=== PATIENT | female | born 1990 | race American Indian/Alaskan Native ===

== ENCOUNTER 2017-09-03 13:17 | Day surgery (SDC) | payer BC, MEDICAID ==
[2017-09-03] MEDS ORDERED: Propofol 10 mg/ml Inj (20 ML) ONE (16:27)
[2017-09-03] MEDS ORDERED: Sodium Chloride 0.9% 1,000 ML IV SCH (16:45)
[2017-09-03 17:23] VITALS: BP 107/64; PULSE 52; RESP 20; TEMP 97.7; O2SAT 94
== END 2017-09-03 18:00 | disposition home or self-care (01) ==
LOC: ENDO 13:17
PROVIDERS: ATTEND Internal Medicine Gastroenterology
DX: K29.50 Unspecified chronic gastritis without bleeding (principal); K44.9 Diaphragmatic hernia without obstruction or gangrene; K31.89 Other diseases of stomach and duodenum
CPT/HCPCS: 43239; 84703; 88305; 88342; J2704; J7040 ×2

== ENCOUNTER 2017-10-09 08:38 | Inpatient (IN) | payer BC, MEDICAID ==
--- NOTE | 2017-10-09 09:14 | ED PDOC ---
Arrival/HPI - History of Present Illness Time/Duration: 1-3 hours Symptom Onset: Sudden Symptom Course: Unchanged Quality: Stabbing Severity Level: 10 Activities at Onset: Rest <Lynsey Rasmussen - Last Filed: 10/09/17 17:10> <William Tucker - Last Filed: 10/09/17 17:15> - General Chief Complaint: Abdominal Pain Time Seen by Provider: 10/09/17 08:42 - History of Present Illness Narrative History of Present Illness (Text): This patient is a 26 year old Black female with PMHx significant for hepatic tumor, Hepatic lobectomy, hepatic ablation, and pancreatic divisum who presents to the ED with complaints of sharp Left sided abdominal pain that woke up her up out of her sleep this morning which she rates a 10/10. Patient cannot identify any factors that may have caused the pain. Patient states the pain is constant and at times sharply radiates to her right abdomen. The pain is aggravated with inspiration and is relieved by standing up. Patient has not had a bowel movement for 5 days. According to the patient, her bowel movements are usually not normal. She denies any blood or dark stool in her last bowel movement. She denies any fevers, chills, chest pain, or urinary symptoms. She does complain of shortness of breath due to the abdominal pain. Patient's last meal was around 9pm last night which she tolerated. She denies vomiting but states that she has been "gagging". Patient had hepatic ablation done in August and was admitted to [facility] [place] 2 weeks ago for slight bleeding secondary to the ablation. ROS POSITIVES: Abd Pain, Nausea, constipation, SOB NEGATIVES: Melena, blood in stool, urinary symptoms, generalized weakness, chest pain, fevers, chills, dizziness, generalized weakness PMHx: Chronic Gastritis, Hepatic tumor, Pancreatic divisum, hiatal hernia PSHx: Hepatic lobectomy, Hepatic ablation Allergies: NKDA Social Hx: Denies Tobacco, alcohol, or illicit drug use Hos: [facility] [place] [facility] 2 weeks ago for abdominal pain FamHx: Denies Meds: Denies 10/09/17 09:42 10/09/17 09:44 (Lynsey Rasmussen) Past Medical History - Provider Review Nursing Documentation Reviewed: Yes - Infectious Disease Hx of Infectious Diseases: None - Tetanus Immunization Tetanus Immunization: Unknown - Past Medical History Past Medical History: No Previous - Cardiac Hx Cardiac Disorders: No - Pulmonary Hx Bronchitis: Yes - Neurological Hx Neurological Disorder: No - HEENT Hx HEENT Disorder: No - Renal Hx Renal Disorder: No - Endocrine/Metabolic Hx Endocrine Disorders: No - Hematological/Oncological Hx Blood Disorders: No - Integumentary Hx Dermatological Disorder: No - Musculoskeletal/Rheumatological Hx Musculoskeletal Disorders: No - Gastrointestinal Hx Gastrointestinal Disorders: Yes Other/Comment: Pancreatic problems-Per patient pancrease is splitting. Liver tumors. - Genitourinary/Gynecological Hx Genitourinary Disorders: No - Psychiatric Hx Psychophysiologic Disorder: No Hx Substance Use: No - Past Surgical History Past Surgical History: No Previous - Surgical History Other/Comment: Liver Tumor removal. - Anesthesia Hx Anesthesia Reactions: No Hx Malignant Hyperthermia: No - Suicidal Assessment Feels Threatened In Home Enviroment: No <Lynsey Rasmussen - Last Filed: 10/09/17 17:10> Family/Social History - Physician Review Nursing Documentation Reviewed: Yes Family/Social History: No Known Family HX Smoking Status: Never Smoked Hx Alcohol Use: No Hx Substance Use: No Hx Substance Use Treatment: No <Lynsey Rasmussen - Last Filed: 10/09/17 17:10> Allergies/Home Meds <Lynsey Rasmussen - Last Filed: 10/09/17 17:10> <William Tucker - Last Filed: 10/09/17 17:15> Allergies/Adverse Reactions: Allergies No Known Allergies Allergy (Verified 10/09/17 09:06) Home Medications: Home Meds Medication Instructions Recorded Confirmed No Home Meds 0 mg PO DAILY 08/31/17 10/09/17 Review of Systems - Physician Review All systems were reviewed & negative as marked: Yes (ROS as per HPI) - Review of Systems Constitutional: Normal Respiratory: SOB. absent: Normal Cardiovascular: Normal. absent: Chest Pain <Lynsey Rasmussen - Last Filed: 10/09/17 17:10> Physical Exam Vital Signs Reviewed: Yes Temperature: Afebrile Blood Pressure: Normal Pulse: Regular Respiratory Rate: Normal Appearance: Positive for: Ill-Appearing, Uncomfortable Pain Distress: Severe Mental Status: Positive for: Alert and Oriented X 3 - Systems Exam Head: Present: Atraumatic, Normocephalic Conjunctiva: Present: Normal Ears: Present: Normal Mouth: Present: Moist Mucous Membranes Nose (External): Present: Atraumatic Neck: Present: Normal Range of Motion Respiratory/Chest: Present: Clear to Auscultation. No: Wheezes, Rales, Rhonchi Cardiovascular: Present: Regular Rate and Rhythm, Normal S1, S2. No: Murmurs Abdomen: Present: Tenderness, Guarding. No: Distention Upper Extremity: Present: Normal Inspection Lower Extremity: Present: Normal Inspection Neurological: Present: GCS=15, Speech Normal Skin: Present: Warm, Dry, Normal Color Psychiatric: Present: Alert, Oriented x 3 <Lynsey Rasmussen - Last Filed: 10/09/17 17:10> Vital Signs Temp Pulse Resp BP Pulse Ox 10/09/17 15:39 98.3 F 56 L 17 100/62 100 10/09/17 13:50 98.3 F 59 L 17 95/57 L 100 10/09/17 12:16 98.3 F 54 L 17 103/65 100 10/09/17 11:03 98.3 F 87 17 114/67 98 10/09/17 09:03 98.3 F 76 17 112/76 98 Medical Decision Making - Lab Interpretations I have reviewed the lab results: Yes - RAD Interpretation Tag Press Operator: ED Physician, Radiologist <Lynsey Rasmussen - Last Filed: 10/09/17 17:10> <William Tucker - Last Filed: 10/09/17 17:15> ED Course and Treatment: 26 year old female with history of chronic gastritis presents with abdominal pain --CMP/CBC --Lipase --1L NS Bolus --UA w/ HCG --Morphine 4 IVP --Protonix 40 IVP --CT Abd/Pelvis --Reassess and Disposition Reassessment --CMP - Unremarkable --CBC - Unremarkable, no leukocytosis --Lipase WNL @ 74 --UA: 30 protein, Trace-intact blood, urobilinogen --Morphine 5 given. --CT Abd/Pelvis impression read by Dr. Salome Sparrow: Numerous hepatic hypodense lesions, indeterminate. Largest lesion resides within the left hepatic lobe measuring approximately 3.1 x 2.1 cm, hypodense and heterogeneous. Dedicated cross-sectional imaging may be considered as an outpatient for further characterization if indicated. Moderate constipation. Distended gallbladder without calcified gallstones evident. Correlate clinically. 2.5 cm probable left ovarian cyst. Pelvic ultrasound may be considered for further evaluation if indicated. Additional incidental findings as above. --Ordered TV US for evaluation ovarian cyst --Ordered Abd US for evaluation of Gallbladder --Toradol 30 IVP given for return of pain. --Reassess and Disposition Reassessment 2 --Gave Colace for Constipation --TV US: Bilateral ovarian cysts measuring up to 2.1 cm and septated on the left. Recommend 6 week ultrasound follow-up to assess for resolution. --Abd US Heterogeneous hepatic parenchyma with numerous hepatic masses which appear hyperechoic, indeterminate on current study. Prior imaging indicates patient with history of focal nodular hyperplasia. Recommend continued follow-up as indicated. --Patient discussed with Braulio (GI) by physician --Advised patient to follow up with PMD for repeat US to assess resolution of b/ l ovarian. (Lynsey Rasmussen) 10/09/17 10:03 Cate Romano is a 26 year old female who presents to the emergency department with a complaint of abdominal pain since this morning. In agreement with resident note, which includes further HPI details. Patient was seen and evaluated with resident, came up with plan and treatment together. (William Tucker) - Lab Interpretations Lab Results: 10/09/17 09:35 10/09/17 09:35 Lab Results 10/09/17 10:05: Urine Color Yellow, Urine Appearance Sl cloudy, Urine pH 7.5, Ur Specific [place] 1.020, Urine Protein 30 H, Urine Glucose (UA) Negative, Urine Ketones Negative, Urine Blood Trace-intact H, Urine Nitrate Negative, Urine Bilirubin Negative, Urine Urobilinogen 1.0 H, Ur Leukocyte Esterase Negative, Urine RBC 1 - 3, Urine WBC 0 - 2, Ur Epithelial Cells 1 - 3, Urine Bacteria Mod, Urine HCG, Qual Negative 10/09/17 09:35: Sodium 144, Potassium 4.3, Chloride 105, Carbon Dioxide 29, Anion Gap 15, BUN 12, Creatinine 0.6 L, Est GFR ( Amer) > 60, Est GFR ( Non-Af Amer) > 60, Random Glucose 97, Calcium 10.1, Total Bilirubin 0.6, AST 24 , ALT 33, Alkaline Phosphatase 64, Total Protein 8.3, Albumin 4.9 H, Globulin 3.3, Albumin/Globulin Ratio 1.5, Lipase 74 10/09/17 09:35: WBC 6.3 D, RBC 4.57, Hgb 12.7, Hct 38.6, MCV 84.5, MCH 27.8, MCHC 32.9, RDW 13.7, Plt Count 287, MPV 9.3, Gran % 66.4, Lymph % (Auto) 27.9, Cotton % (Auto) 4.9, Eos % (Auto) 0.6 L, Baso % (Auto) 0.2, Gran # 4.21, Lymph # 1.8, Cotton # 0.3, Eos # 0.0, Baso # 0.01 - RAD Interpretation Radiology Orders: 10/09/17 09:18 ABD & PELVIS IV CONTRAST ONLY [CT] Stat 10/09/17 14:12 ABDOMEN COMPLETE [US] Stat TRANSVAGINAL [US] Stat - Medication Orders Current Medication Orders: Discontinued Medications Docusate Sodium (Colace) 100 mg PO STAT STA Stop: 10/09/17 16:54 Sodium Chloride (Sodium Chloride 0.9%) 1,000 mls @ 999 mls/hr IV .[id number] STA Stop: 10/09/17 10:18 Last Admin: 10/09/17 09:49 Dose: 999 mls/hr eMAR Start Stop Document 10/09/17 09:49 OCS (Rec: 10/09/17 09:49 OCS [id number]) Intravenous Solution Start Date 10/09/17 Start Time 09:49 End Date 10/09/17 End time 10:49 Total Infusion Time 60 Ketorolac Tromethamine (Toradol) 30 mg IVP STAT STA Stop: 10/09/17 14:17 Last Admin: 10/09/17 14:38 Dose: 30 mg MAR Pain Assessment Document 10/09/17 14:38 OCS (Rec: 10/09/17 14:44 OCS [id number]) Pain Reassessment Is this a pain reassessment? Yes Sleep Is patient sleeping during reassessment? No Presence of Pain Presence of Pain Yes Pain Scale Used Pain Scale Used Numeric Location Left, Right or Bilateral Left Pain Location Body Site Abdomen Description Description Constant Intensity of Pain at present 10 Pain Behavior Guarding Irritability Rubbing Site Aggravating Factors ADL's IVP Administration Document 10/09/17 14:38 OCS (Rec: 10/09/17 14:44 OCS [id number]) Charges for Administration # of IVP Administrations 1 Morphine Sulfate (Morphine) 4 mg IVP STAT STA Stop: 10/09/17 09:19 Last Admin: 10/09/17 09:56 Dose: Morphine Sulfate (Morphine) 4 mg IVP STAT STA Stop: 10/09/17 09:45 Last Admin: 10/09/17 09:56 Dose: 4 mg IVP Administration Document 10/09/17 09:56 OCS (Rec: 10/09/17 09:56 OCS [id number]) Charges for Administration # of IVP Administrations 1 Morphine Sulfate (Morphine) 5 mg IVP STAT STA Stop: 10/09/17 10:52 Last Admin: 10/09/17 10:58 Dose: 5 mg IVP Administration Document 10/09/17 10:58 OCS (Rec: 10/09/17 10:58 OCS [id number]) Charges for Administration # of IVP Administrations 1 Pantoprazole Sodium (Protonix Inj) 40 mg IVP STAT STA Stop: 10/09/17 09:19 Last Admin: 10/09/17 09:50 Dose: 40 mg IVP Administration Document 10/09/17 09:50 OCS (Rec: 10/09/17 09:50 OCS [id number]) Charges for Administration # of IVP Administrations 1 <Lynsey Rasmussen - Last Filed: 10/09/17 17:10> - Scribe Statement The provider has reviewed the documentation as recorded by the Scribe <William Tucker - Last Filed: 10/09/17 17:15> - Scribe Statement Tessa Arizmendi Provider Scribe Attestation: All medical record entries made by the Scribe were at my direction and personally dictated by me. I have reviewed the chart and agree that the record accurately reflects my personal performance of the history, physical exam, medical decision making, and the department course for this patient. I have also personally directed, reviewed, and agree with the discharge instructions and disposition. (William Tucker) Disposition/Present on Arrival - Present on Arrival Any Indicators Present on Arrival: No History of DVT/PE: No History of Uncontrolled Diabetes: No Urinary Catheter: No History of Decub. Ulcer: No History Surgical Site Infection Following: None - Disposition Have Diagnosis and Disposition been Completed?: Yes Disposition Time: 16:57 Patient Plan: Admission <Lynsey Rasmussen - Last Filed: 10/09/17 17:10> <William Tucker - Last Filed: 10/09/17 17:15> - Disposition Diagnosis: Abdominal pain Disposition: HOSPITALIZED Patient Problems: Current Active Problems Problem Status Onset Abdominal pain Acute Condition: STABLE
[2017-10-09] MEDS ORDERED: Morphine 4 mg/ml ISec IVP STA (09:18)
[2017-10-09] MEDS ORDERED: Sodium Chloride 0.9% 1,000 ML IV STA (09:18)
[2017-10-09] MEDS ORDERED: Morphine 5 MG/ML SYRINGE IVP STA ×2 (09:44→10:51)
[2017-10-09 09:49] LABS: BASO # 0.01 K/mm3 (0.0-2.0); BASO % 0.2 % (0.0-3.0); EOS % 0.6 % (1.5-5.0); GRAN # 4.21 (1.4-6.5); GRAN % 66.4 % (50.0-68.0); HEMATOCRIT 38.6 % (36.0-48.0); LYMPH # 1.8 (1.2-3.4); LYMPH % 27.9 % (22.0-35.0); MEAN CELL VOLUME 84.5 fl (80.0-105.0); MEAN CORPUSCULAR HEMOGLOBIN 27.8 pg (25.0-35.0); MEAN CORPUSCULAR HGB CONC 32.9 g/dl (31.0-37.0); MEAN PLATELET VOLUME 9.3 fl (7.0-11.0); MONO # 0.3 (0.1-0.6); MONO % 4.9 % (1.0-6.0); RED CELL DISTRIBUTION WIDTH 13.7 % (11.5-14.5); WHITE BLOOD COUNT 6.3 10^3/ul (4.5-11.0)
[2017-10-09 10:01] LABS: ALKALINE PHOSPHATASE 64 U/L (38-126); ALT/SGPT 33 U/L (7-56); AST/SGOT 24 U/L (14-36); BILIRUBIN,TOTAL 0.6 mg/dL (0.2-1.3); BLOOD UREA NITROGEN 12 mg/dL (7-21); CALCIUM 10.1 mg/dL (8.4-10.5); CARBON DIOXIDE 29 mmol/L (21-33); CHLORIDE 105 mmol/L (98-107); GFR AFRICAN-AMERICAN > 60; GLUCOSE,RANDOM 97 mg/dL (70-110); LIPASE 74 U/L (23-300); POTASSIUM 4.3 mmol/L (3.6-5.0); SODIUM 144 mmol/L (132-148); TOTAL PROTEIN 8.3 g/dL (5.8-8.3)
[2017-10-09 10:09] LABS: ALB/GLOB RATIO 1.5 (1.1-1.8)
[2017-10-09 10:21] LABS: PH,URINE 7.5 (4.7-8.0); URINE APPEARANCE SL CLOUDY (CLEAR); URINE BILIRUBIN NEGATIVE (NEGATIVE); URINE BLOOD TRACE-INTACT (NEGATIVE); URINE COLOR YELLOW (YELLOW); URINE GLUCOSE (UA) NEGATIVE (NEGATIVE); URINE KETONE NEGATIVE (NEGATIVE); URINE LEUKOCYTE ESTERASE NEGATIVE Leu/uL (NEGATIVE); URINE PROTEIN 30 mg/dL (<30 mg/dL)
[2017-10-09 10:36] LABS: URINE BACTERIA MOD (NEG); URINE WBC 0 - 2 /hpf (0-6)
[2017-10-09] MEDS ORDERED: Iohexol 350 MG/100 ML VIAL ONE (10:40)
--- NOTE | 2017-10-09 14:06 | CT ---
PROCEDURE: CT Abdomen and Pelvis with contrast HISTORY: Abdominal Pain COMPARISON: MR abdomen performed 01/17/16 TECHNIQUE: Contrast dose: 100 cc Omnipaque 350 Radiation dose: Total exam DLP = 240.01 mGy-cm. This CT exam was performed using one or more of the following dose reduction techniques: Automated exposure control, adjustment of the mA and/or kV according to patient size, and/or use of iterative reconstruction technique. FINDINGS: LOWER THORAX: No visible consolidation, pleural effusion, or pneumothorax. LIVER: Numerous hepatic hypodense lesions, indeterminate. Largest lesion resides within the left hepatic lobe measuring approximately 3.1 x 2.1 cm, hypodense and heterogeneous (series 2, image 40). GALLBLADDER AND BILE DUCTS: Gallbladder distension. No calcified gallstones evident. PANCREAS: Unremarkable. SPLEEN: Unremarkable. ADRENALS: Unremarkable. KIDNEYS AND URETERS: The kidneys enhance symmetrically. No hydronephrosis or obstructing calculus identified. VASCULATURE: No aortic aneurysm. BOWEL: Stomach is nondistended. Lack of oral contrast limits evaluation for bowel pathology. Bowel loops appear within normal limits of caliber without evidence of obstruction. Moderate constipation. APPENDIX: The appendix appears within normal limits of caliber. No secondary signs of acute appendicitis. PERITONEUM: No significant pelvic free fluid. No definite free air. LYMPH NODES: No bulky adenopathy identified. BLADDER: Unremarkable. REPRODUCTIVE: Uterus is present. Probable left ovarian cyst measures approximately 2.5 cm. BONES: No acute osseous abnormality is detected. OTHER FINDINGS: None. IMPRESSION: Numerous hepatic hypodense lesions, indeterminate. Largest lesion resides within the left hepatic lobe measuring approximately 3.1 x 2.1 cm, hypodense and heterogeneous. Dedicated cross-sectional imaging may be considered as an outpatient for further characterization if indicated. Moderate constipation. Distended gallbladder without calcified gallstones evident. Correlate clinically. 2.5 cm probable left ovarian cyst. Pelvic ultrasound may be considered for further evaluation if indicated. Additional incidental findings as above.
--- NOTE | 2017-10-09 15:55 | US ---
HISTORY: gallbladder distension/Abd pain COMPARISON: CT abdomen pelvis with IV contrast performed 10/09/17 TECHNIQUE: Sonographic evaluation of the abdomen. FINDINGS: LIVER: Measures 16.3 cm in sagittal dimension. Echogenic liver may be seen in setting of hepatic parenchymal disease or fatty infiltration. Multiple hyperechoic hepatic masses, indeterminate. The main portal vein appears patent with normal directional flow. No intrahepatic bile duct dilatation. GALLBLADDER: No gallstones. No gallbladder wall thickening. Negative sonographic Mir's sign as assessed by the flat knitter helper. COMMON BILE DUCT: Measures 3 mm. PANCREAS: Not well visualized. RIGHT KIDNEY: Measures 11.2 x 4.6 x 5.3 cm. No obstructing calculus or hydronephrosis identified. LEFT KIDNEY: Measures 11.8 x 4.4 x 4.4 cm. No obstructing calculus or hydronephrosis identified. SPLEEN: Measures approximately 11.7 cm. AORTA: Limited views appear unremarkable. IVC: Limited views appear unremarkable. OTHER FINDINGS: None. IMPRESSION: Heterogeneous hepatic parenchyma with numerous hepatic masses which appear hyperechoic, indeterminate on current study. Prior imaging indicates patient with history of focal nodular hyperplasia. Recommend continued follow-up as indicated.
--- NOTE | 2017-10-09 16:29 | US ---
HISTORY: Ovarian Cyst COMPARISON: No prior ultrasound available for direct comparison. TECHNIQUE: Transvaginal pelvic ultrasound FINDINGS: UTERUS: Measures 10.3 x 4.6 x 5.6 cm. Anteverted. ENDOMETRIUM: Measures 1 cm in diameter. CERVIX: No cervical abnormality identified. RIGHT OVARY: Measures 2.9 x 2.3 x 2.6 cm. Blood flow is demonstrated. 1.1 x 1.0 x 1.2 cm cyst. LEFT OVARY: Measures 3.5 x 2.7 x 3.6 cm. Blood flow is demonstrated. 2.0 x 1.5 x 2.1 cm septated cyst. FREE FLUID: No significant free fluid noted. OTHER FINDINGS: None. IMPRESSION: Bilateral ovarian cysts measuring up to 2.1 cm and septated on the left. Recommend 6 week ultrasound follow-up to assess for resolution.
[2017-10-09] MEDS ORDERED: POLYETHYLENE GLYCOL 3350 17 GM/Dose PACKET PO STA (18:01)
[2017-10-09] MEDS ORDERED: Sodium Chloride 0.9% 1,000 ML IV SCH (18:15)
[2017-10-09 18:53] VITALS: BMI 28.8
[2017-10-09] MEDS ORDERED: Pneumococcal 23-Valent Vaccine IM ONE (18:53)
[2017-10-09] MEDS ORDERED: Influenza Vaccine 60 mcg/0.5 mL SYR (4YR UP) IM ONE (18:53)
--- NOTE | 2017-10-09 23:57 | CP.PCM.CON ---
History of Present Illness - History of Present Illness History of Present Illness: this 26-year-old patient well known to our service with a history of hepatoma status post hepatic lobe resection done at the [facility] by Dr. Resendez. She Has recurrence of these hepatomas and patient recently had an attempted radiofrequency ablation/embolization with partial success. This patient noticed a worsening of the abdominal pain on the left side of the abdomen present to the emergency room for further evaluation. No fever no vomiting blood no bleeding per rectum. Patient does have history of chronic constipation with a redundant colon. Last endoscopy evaluation did not reveal any ulcerations. Patient had recently seen Dr. Resendez and the she is due to have further workup based on the clinical course. She points out the pain mainly in the left upper quadrant area closer to the epigastric area. No complaints of any abdominal pain on the right side. The CT showed some distended gallbladder. other PAST MEDICAL HISTORY included chronic constipation, redundant colon gastritis, questionable pancreatic divisum sOCIAL HISTORY no smoking or alcohol/ Review of Systems - Constitutional Constitutional: As Per HPI. absent: Chills, Fever - EENT Nose/Mouth/Throat: As Per HPI. absent: Change in Voice, Dysphagia - Respiratory Respiratory: absent: Cough, Hemoptysis - Gastrointestinal Gastrointestinal: As Per HPI, Abdominal Pain, Belching, Bloating, Constipation, Cramping. absent: Odynophagia Additional comments: history of chronic constipation - Musculoskeletal Musculoskeletal: As Per HPI - Psychiatric Psychiatric: As Per HPI. absent: Depression, Hallucinations - Endocrine Endocrine: As Per HPI - Hematologic/Lymphatic Hematologic: absent: Easy Bleeding, Lymphadenopathy Past Patient History - Infectious Disease Hx of Infectious Diseases: None - Tetanus Immunizations Tetanus Immunization: Unknown - Past Social History Smoking Status: Never Smoked - CARDIAC Hx Cardiac Disorders: No - PULMONARY Hx Bronchitis: Yes - NEUROLOGICAL Hx Neurological Disorder: No - HEENT Hx HEENT Problems: No - RENAL Hx Chronic Kidney Disease: No - ENDOCRINE/METABOLIC Hx Endocrine Disorders: No - HEMATOLOGICAL/ONCOLOGICAL Hx Blood Disorders: No - INTEGUMENTARY Hx Dermatological Problems: Yes (multiple tatoos) - MUSCULOSKELETAL/RHEUMATOLOGICAL Hx Musculoskeletal Disorders: No Hx Falls: No - GASTROINTESTINAL Hx Gastrointestinal Disorders: Yes (gastroenteritis) Other/Comment: Pancreatic problems- as Per patient pancrease is splitting in half. Liver tumors.pt started experiencing abd pain back in 2008 on and off, was dx with liver tumors 2011, liver tumor removed 04/12/17 bwas benign,hepatic lobectomy partial, hepatic ablation 06/2017 and 08/2017, [place] [facility] [place] slight bleeding secondary to ablation done in august. at this point in time liver tumors cause unknown, after hepatic lobectomy partial liver rejuvinated but the tumor grew back also. - GENITOURINARY/GYNECOLOGICAL Other/Comment: 03/2012, d&c 2011 and 2015 - PSYCHIATRIC Hx Psychophysiologic Disorder: No Hx Substance Use: No - SURGICAL HISTORY Other/Comment: Liver Tumor removal. - ANESTHESIA Hx Anesthesia Reactions: No Hx Malignant Hyperthermia: No Meds Allergies/Adverse Reactions: Allergies Allergy/AdvReac Type Severity Reaction Status Date / Time No Known Allergies Allergy Verified 10/09/17 09:06 - Medications Medications: Current Medications Hydromorphone HCl (Dilaudid) 0.5 mg IVP Q4H PRN PRN Reason: Pain, Mild (1-3) Sodium Chloride (Sodium Chloride 0.9%) 1,000 mls @ 80 mls/hr IV .[id number] GERMAN Lactulose (Enulose) 30 gm PO DAILY GERMAN Ondansetron HCl (Zofran Inj) 4 mg IVP Q6 PRN PRN Reason: Nausea/Vomiting Pantoprazole Sodium (Protonix Inj) 40 mg IVP DAILY GERMAN Polyethylene Glycol (Miralax) 17 gm PO TID GERMAN Physical Exam - Head Exam Head Exam: NORMOCEPHALIC. absent: ATRAUMATIC - Eye Exam Eye Exam: EOMI, PERRL - ENT Exam ENT Exam: Mucous Membranes Moist, Normal Oropharynx - Neck Exam Neck exam: Positive for: Normal Inspection. Negative for: Lymphadenopathy - Respiratory Exam Respiratory Exam: Clear to Auscultation Bilateral, NORMAL BREATHING PATTERN. absent: Rales, Rhonchi - Cardiovascular Exam Cardiovascular Exam: REGULAR RHYTHM, +S1, +S2. absent: JVD - GI/Abdominal Exam GI & Abdominal Exam: Normal Bowel Sounds, Soft, Tenderness. absent: Mass Additional comments: tenderness mainly in the left upper quadrant area more towards the epigastric area no rebound or guarding - Neurological Exam Neurological exam: Alert, CN II-XII Intact, Oriented x3 - Skin Skin Exam: Normal Color Results - Vital Signs Recent Vital Signs: Last Vital Signs Temp 98.7 F 10/09/17 22:49 Pulse 50 L 10/09/17 22:49 Resp 20 10/09/17 22:49 BP 107/64 10/09/17 22:49 Pulse Ox 100 10/09/17 22:49 - Labs Result Diagrams: 10/10/17 05:00 10/10/17 05:00 Assessment & Plan - Assessment and Plan (Free Text) Assessment: this a 26-year-old patient with a history of hepatoma had hepatic lobe resection done, has recurrence of hepatoma is has a large lesion on the left lobe of the liver had attempted radiofrequency ablation embolization with only partial success now presented to the emergency room with the worsening of the abdominal pain. The CT scan was reviewed it shows a lesion in the left lobe of the liver and pressing on the stomach area. Patient also has significant amount of stool in the colon Plan: 1. Wait start the patient on MiraLAX 2. Clear liquid diet 3. Will discuss with Dr. Resendez for further follow-up upon discharge at the [facility] Thank you very much for allowing us to precipitate the care of the patient - Date & Time Date: 10/09/17
[2017-10-10 06:58] LABS: ALB/GLOB RATIO 1.4 (1.1-1.8); ALKALINE PHOSPHATASE 48 U/L (38-126); ALT/SGPT 24 U/L (7-56); AST/SGOT 21 U/L (14-36); BILIRUBIN,TOTAL 0.7 mg/dL (0.2-1.3); BLOOD UREA NITROGEN 10 mg/dL (7-21); CALCIUM 9.1 mg/dL (8.4-10.5); CARBON DIOXIDE 25 mmol/L (21-33); CHLORIDE 108 mmol/L (98-107); GFR AFRICAN-AMERICAN > 60; GLUCOSE,RANDOM 76 mg/dL (70-110); POTASSIUM 3.8 mmol/L (3.6-5.0); SODIUM 140 mmol/L (132-148); TOTAL PROTEIN 6.6 g/dL (5.8-8.3)
[2017-10-10 07:09] LABS: BASO # 0.02 K/mm3 (0.0-2.0); BASO % 0.5 % (0.0-3.0); EOS # 0.1 (0.0-0.7); EOS % 1.8 % (1.5-5.0); GRAN # 1.74 (1.4-6.5); GRAN % 44.6 % (50.0-68.0); HEMATOCRIT 35.2 % (36.0-48.0); LYMPH # 1.8 (1.2-3.4); LYMPH % 46.4 % (22.0-35.0); MEAN CELL VOLUME 84.6 fl (80.0-105.0); MEAN CORPUSCULAR HEMOGLOBIN 27.6 pg (25.0-35.0); MEAN CORPUSCULAR HGB CONC 32.7 g/dl (31.0-37.0); MEAN PLATELET VOLUME 9.3 fl (7.0-11.0); MONO # 0.3 (0.1-0.6); MONO % 6.7 % (1.0-6.0); RED CELL DISTRIBUTION WIDTH 13.7 % (11.5-14.5); WHITE BLOOD COUNT 3.9 10^3/ul (4.5-11.0)
[2017-10-10] MEDS: POLYETHYLENE GLYCOL 3350 17 GM/Dose PACKET PO SCH ×3 (10:13→17:06)
[2017-10-10] MEDS: Sodium Chloride 0.9% 1,000 ML IV SCH (10:14)
[2017-10-10] MEDS: HYDROmorphone 0.5 mg/0.5 ml ISec IVP PRN ×2 (10:16→21:26)
[2017-10-10] MEDS ORDERED: Magnesium Citrate Oral SOL (300 ml) PO ONE (15:03)
[2017-10-10] MEDS ORDERED: Bisacodyl 5mg EC Tab PO ONE (20:20)
--- NOTE | 2017-10-10 22:14 | HP ---
CHIEF COMPLAINT: Abdominal pain, especially on the left side. HISTORY OF PRESENT ILLNESS: Ms. Cate Romano is a 26-year-old female with past medical history for hepatic tumor, hepatic lobectomy, hepatic ablation, and pancreatic disease, came to the emergency department with complaining of sharp left-sided abdominal pain that woke up her up out of her sleep. The patient cannot identify any factor that may have caused the pain. The patient states the pain is constant and at times sharply radiates to her right abdomen. Pain is aggravated with the inspiration and is relieved by standing up. The patient has not had bowel movement for five days. According to the patient, this patient has history of chronic constipation. Denies blood or dark stool in her bowel movement. Denies fevers or chills. No nausea or vomiting. No urinary symptoms. Sometime feeling shortness of breath due to abdominal pain. The patient was gagging, but denies vomiting. The patient had hepatic ablation done in August, was admitted to [facility] two weeks ago for slight bleeding secondary to ablation. The patient was seen and examined in the emergency room in the presence of mother. PAST MEDICAL HISTORY: Chronic gastritis, chronic constipation, hepatic tumor, pancreatic disease, hiatal hernia, got treatment in [facility] and [facility], hepatic lobectomy, hepatic ablation, and history of bronchitis. FAMILY HISTORY: Father and mother noncontributory. HABITS: Never smoked. No drugs. No ethanol. ALLERGIES: THE PATIENT IS NOT ALLERGIC TO ANY MEDICATIONS. HOME MEDICATIONS: The patient does not remember. REVIEW OF SYSTEMS: The patient was seen and examined on the bedside in the emergency room in the presence of mother. Has abdominal pain on the left side. No bowel movement. No nausea or vomiting. No fever. No chills. Looking uncomfortable. No headache. No hematuria. No hematochezia. PHYSICAL EXAMINATION: VITAL SIGNS: Temperature 98.3, pulse 56, respiratory rate 17, blood pressure 100/62, and pulse oximetry 100%. HEENT: Head is normocephalic and atraumatic. Eyes; PERRLA. Extraocular movements intact. Conjunctivae clear. Nose patent. Mucous membranes moist. NECK: Supple. No carotid bruits, JVD, or thyromegaly. CHEST: Bilaterally symmetrical. HEART: S1 and S2 positive. LUNGS: Clear to auscultation. ABDOMEN: Soft. Bowel sounds are present. No organomegaly. EXTREMITIES: No edema. No cyanosis. NEUROLOGIC: The patient is awake and alert. Moving all four extremities. No focal deficits. LABORATORY DATA: White blood cell is 6.3, hemoglobin 12.7, hematocrit 38.6, and platelets 287. Sodium 144, potassium 4.3, BUN 12, creatinine 0.6, and glucose 97. ASSESSMENT AND PLAN: Ms. Cate Romano is a 26-year-old female with history of multiple medical problems, came in the emergency room on 10/09/2017 for left-sided abdominal pain, went for transvaginal ultrasound, showed bilateral ovarian cyst measuring up to 2.1 cm and septated on the left, recommending 6-week ultrasound follow up and assessing the resolution. Abdominal ultrasound is done according to Dr. Mcmahon. Heterogeneous hepatic parenchyma with numerous hepatic masses, which appear hypertrophic intermediate on current study. Prior imaging indicates the patient with history of focal nodular hyperplasia. CAT scan of the abdomen and pelvis done in the emergency room, numerous hepatic hypodense lesions intermediate larger lesions resides with the left hepatic lobe measuring approximately 3.1 x 2.1 cm hypodense and heterogeneous, moderate constipation, descending gallbladder without calcified gallstone 2.5 cm comparable left ovarian cyst, pelvic ultrasound may be considered, we already did that. The patient has history of hepatic tumor, hepatic lobectomy, hepatic ablation, pancreatic divisum, chronic constipation, history of bronchitis, liver tumor removed. As per the patient's pancreatic problems, pancreas there is some bleeding. Dr. Ramsey knows this patient very well. He took care of her with the team of [facility] and [facility] surgeons. We admitted the patient and giving pain medication. Waiting for Gastroenterology input. We will follow up. Nikky Yun MD
--- NOTE | 2017-10-10 23:54 | PN ---
DATE: SUBJECTIVE: The patient is a 26-year-old female. The patient was seen and examined at the bedside., still having abdominal pain, but getting better with the pain and seen by GI, Dr. Ramsey, waiting further input. No hematuria or hematochezia. Still do not have bowel movement, No nausea or vomiting. No fevers. No chills. PHYSICAL EXAMINATION: VITAL SIGNS: Temperature 97.9, pulse 65, blood pressure 91/52, respiratory rate 20. HEENT: Head, normocephalic, atraumatic. Eyes, PERRLA. Extraocular muscles are intact. Conjunctivae clear. Nose patent. Mucous membranes moist. NECK: Supple. No carotid bruits, JVD, or thyromegaly. CHEST: Bilaterally symmetrical. HEART: S1 and S2 positive. LUNGS: Clear to auscultation. ABDOMEN: Soft. Bowel sounds present. No organomegaly. EXTREMITIES: No edema. No cyanosis. NEUROLOGIC: The patient is awake and alert. Moving all 4 extremities. No focal deficits. MEDICATIONS: Dilaudid, lactulose, MiraLax, Protonix, NS, and Zofran. LABORATORY DATA: White blood cells 3.9, hemoglobin 10.5, hematocrit 35.2, platelets 229. Sodium 140, potassium 3.8, BUN 10, creatinine 0.6. ASSESSMENT AND PLAN: Ms. Cate Romano is a 26-year-old female with a leukopenia, anemia, hyperchloremia, proteinuria, hematuria, came with abdominal pain, constipation, led for CAT scan of the abdomen and pelvis. Abdominal ultrasound and transvaginal ultrasound reviewed by me. The patient has history of hepatic tumor, hepatic lobectomy, hepatic ablation, pancreatic divisum as per the patient. She got treatment at [facility] and [facility]. We will continue present treatment. We will follow up. Nikky Yun MD
--- NOTE | 2017-10-11 00:05 | PN ---
DATE: 10/10/2017 SUBJECTIVE: This patient was seen and evaluated earlier today. Patient did not have any bowel movement significant. The patient has been on MiraLax. PHYSICAL EXAMINATION: VITAL SIGNS: Temperature 97.9, pulse 65, blood pressure 91/52. HEENT: Atraumatic, anicteric. NECK: Supple. HEART: S1, S2 heard. LUNGS: Bilateral air entry present. ABDOMEN: Soft. There is no mass palpable. Tenderness present in the epigastric and towards the right upper quadrant area. There is no rebound or guarding. EXTREMITIES: No cyanosis. No clubbing. LABORATORY DATA: Hemoglobin 11.5, hematocrit 35.2, WBC 3.9, platelets 229. Chemistry is essentially unremarkable. IMPRESSION: This 26-year-old patient admitted with left upper quadrant pain, history of hepatoma, hepatic lesions being followed at the [facility]. The patient does have a lesion in the left lobe and pressing on the stomach area. No rebound or guarding. History of chronic constipation with a significant amount of stool in the colon. RECOMMENDATIONS: The patient would recommend one bottle of milk of magnesia today, if there is no significant improvement, we will give another bottle tomorrow. The patient needed to be followed at the [facility] for further followup care upon discharge. Discussed with the patient at length. We will advance the diet. Thank you very much for allowing us to participate in the care of the patient. Rebecca Ramsey MD
[2017-10-11] MEDS: Sodium Chloride 0.9% 1,000 ML IV SCH ×3 (02:24→22:28)
[2017-10-11 06:21] LABS: BASO # 0.02 K/mm3 (0.0-2.0); BASO % 0.6 % (0.0-3.0); EOS # 0.1 (0.0-0.7); GRAN # 1.53 (1.4-6.5); GRAN % 43.3 % (50.0-68.0); HEMATOCRIT 35.3 % (36.0-48.0); LYMPH # 1.7 (1.2-3.4); LYMPH % 47.9 % (22.0-35.0); MEAN CELL VOLUME 83.8 fl (80.0-105.0); MEAN CORPUSCULAR HEMOGLOBIN 27.1 pg (25.0-35.0); MEAN CORPUSCULAR HGB CONC 32.3 g/dl (31.0-37.0); MEAN PLATELET VOLUME 9.3 fl (7.0-11.0); MONO # 0.2 (0.1-0.6); MONO % 6.2 % (1.0-6.0); RED CELL DISTRIBUTION WIDTH 13.5 % (11.5-14.5); WHITE BLOOD COUNT 3.5 10^3/ul (4.5-11.0)
[2017-10-11 06:43] LABS: ALB/GLOB RATIO 1.4 (1.1-1.8); ALKALINE PHOSPHATASE 48 U/L (38-126); ALT/SGPT 23 U/L (7-56); AST/SGOT 29 U/L (14-36); BILIRUBIN,TOTAL 0.7 mg/dL (0.2-1.3); BLOOD UREA NITROGEN 5 mg/dL (7-21); CALCIUM 8.8 mg/dL (8.4-10.5); CARBON DIOXIDE 25 mmol/L (21-33); CHLORIDE 108 mmol/L (98-107); GFR AFRICAN-AMERICAN > 60; GLUCOSE,RANDOM 76 mg/dL (70-110); POTASSIUM 4.1 mmol/L (3.6-5.0); SODIUM 140 mmol/L (132-148); TOTAL PROTEIN 6.2 g/dL (5.8-8.3)
[2017-10-11] MEDS: HYDROmorphone 0.5 mg/0.5 ml ISec IVP PRN ×2 (07:03→21:15)
[2017-10-11] MEDS: POLYETHYLENE GLYCOL 3350 17 GM/Dose PACKET PO SCH ×3 (09:44→17:29)
--- NOTE | 2017-10-11 17:52 | CP.PCM.PN ---
<Cathi Nixon - Last Filed: 10/12/17 00:09> Subjective - Date & Time of Evaluation Date of Evaluation: 10/11/17 Time of Evaluation: 11:00 - Subjective Subjective: 26 yr female w/ history of hepatic tumor s/p hepatic resection /lobectomy (done at [facility] by Dr. Resendez), hepatic ablation, pancreatic disease, chronic gastritis, and chronic constipation. She denies any headches, dizziness/lightheadness, SOB, chest pain, diarrhea, or urinary frequency. No distress noted. Objective - Vital Signs/Intake and Output Vital Signs (last 24 hours): Temp Pulse Resp BP Pulse Ox 98.1 F 61 19 129/76 100 10/11/17 17:00 10/11/17 17:00 10/11/17 17:00 10/11/17 17:00 10/11/17 17:00 Intake and Output: 10/11/17 10/11/17 06:59 18:59 Intake Total 1460 Balance 1460 - Medications Medications: Current Medications Hydromorphone HCl (Dilaudid) 0.5 mg IVP Q4H PRN PRN Reason: Pain, Mild (1-3) Last Admin: 10/11/17 07:03 Dose: 0.5 mg Sodium Chloride (Sodium Chloride 0.9%) 1,000 mls @ 80 mls/hr IV .[id number] [facility] Last Admin: 10/11/17 09:45 Dose: 80 mls/hr Lactulose (Enulose) 30 gm PO DAILY [facility] Last Admin: 10/11/17 09:44 Dose: 30 gm Ondansetron HCl (Zofran Inj) 4 mg IVP Q6 PRN PRN Reason: Nausea/Vomiting Last Admin: 10/11/17 16:36 Dose: 4 mg Pantoprazole Sodium (Protonix Inj) 40 mg IVP DAILY [facility] Last Admin: 10/11/17 09:44 Dose: 40 mg Polyethylene Glycol (Miralax) 17 gm PO TID [facility] Last Admin: 10/11/17 17:29 Dose: Not Given - Labs Labs: 10/11/17 05:15 10/11/17 05:15 - Constitutional Appears: Well, No Acute Distress - Head Exam Head Exam: ATRAUMATIC, NORMAL INSPECTION, NORMOCEPHALIC - Eye Exam Eye Exam: EOMI, Normal appearance, PERRL Pupil Exam: NORMAL ACCOMODATION, PERRL - ENT Exam ENT Exam: Mucous Membranes Moist, Normal Exam - Neck Exam Neck Exam: Full ROM, Normal Inspection. absent: Lymphadenopathy - Respiratory Exam Respiratory Exam: Clear to Ausculation Bilateral, NORMAL BREATHING PATTERN - Cardiovascular Exam Cardiovascular Exam: REGULAR RHYTHM, +S1, +S2. absent: Murmur - GI/Abdominal Exam GI & Abdominal Exam: Soft, Normal Bowel Sounds. absent: Tenderness - Exam Exam: NORMAL INSPECTION - Extremities Exam Extremities Exam: Full ROM, Normal Capillary Refill, Normal Inspection. absent : Joint Swelling, Pedal Edema - Back Exam Back Exam: NORMAL INSPECTION - Neurological Exam Neurological Exam: Alert, Awake, CN II-XII Intact, Normal Gait, Oriented x3 - Psychiatric Exam Psychiatric exam: Normal Affect, Normal Mood - Skin Skin Exam: Dry, Intact, Normal Color, Warm Assessment and Plan (1) Abdominal pain Status: Acute (2) Anemia Status: Acute (3) Ovarian cyst Status: Acute (4) Constipation Status: Acute (5) Hepatic tumor Status: Chronic - Assessment and Plan (Free Text) Plan: Pt is stable. Continue prescribed medications. Advance diet as tolerated. Consults: GI = Dr. Ramsey = start miralax, clear liquid diet, milk of magnesia Reviewed: Transvaginal US = Bilateral ovarian cysts 2.1 cm septate on the L. Abdominal US = Heterogenous hepatic parenchyma w/ numerous hepatic masses which apear hyperechoic. recommened f/u. CT abd/pelvis = L hepatic lobe lesion 3.1x2.1cm hypodense & heterogeneous. F/U imaging. Moderate constipation, Distended gallbladder. 2.5 cm L ovarian cyst. <Nikky Yun - Last Filed: 10/12/17 11:38> Objective - Vital Signs/Intake and Output Vital Signs (last 24 hours): Temp Pulse Resp BP Pulse Ox 98.5 F 71 18 94/52 L 99 10/12/17 08:28 10/12/17 08:28 10/12/17 08:28 10/12/17 08:28 10/12/17 08:28 Intake and Output: 10/12/17 10/12/17 06:59 18:59 Intake Total 1515 Balance 1515 - Medications Medications: Current Medications Hydromorphone HCl (Dilaudid) 0.5 mg IVP Q4H PRN PRN Reason: Pain, Mild (1-3) Last Admin: 10/11/17 21:15 Dose: 0.5 mg Sodium Chloride (Sodium Chloride 0.9%) 1,000 mls @ 80 mls/hr IV .[id number] [facility] Last Admin: 10/11/17 22:28 Dose: 80 mls/hr Lactulose (Enulose) 30 gm PO DAILY [facility] Last Admin: 10/11/17 09:44 Dose: 30 gm Ondansetron HCl (Zofran Inj) 4 mg IVP Q6 PRN PRN Reason: Nausea/Vomiting Last Admin: 10/11/17 16:36 Dose: 4 mg Pantoprazole Sodium (Protonix Inj) 40 mg IVP DAILY [facility] Last Admin: 10/11/17 09:44 Dose: 40 mg Polyethylene Glycol (Miralax) 17 gm PO TID [facility] Last Admin: 10/11/17 17:29 Dose: Not Given - Labs Labs: 10/11/17 05:15 10/11/17 05:15 Assessment and Plan - Assessment and Plan (Free Text) Plan: pt is seen and examined at bed side . looking comfortable , started diarrhea , no more abdominal pain . no nv . gi is on the case . agreed all above
[2017-10-11 20:33] VITALS: RESP 18; O2SAT 99
--- NOTE | 2017-10-12 05:35 | PN ---
DOS: 10/11/2017. SUBJECTIVE: This patient was seen and evaluated earlier. Patient has been having episodes of loose bowel movements. Finally, patient did have severe constipation; she received a bottle of magnesium citrate. She was on lactulose, MiraLax, which did not work well for her. Presently on GoLYTELY and also lactulose. PHYSICAL EXAMINATION: GENERAL: Patient is lying on the bed, not in acute distress. VITAL SIGNS: Temperature 98.3, pulse 61, afebrile, blood pressure is 129/76, respirations 19, O2 saturation 100%. HEENT: Atraumatic, anicteric. NECK: Supple. HEART: S1, S2 heard. LUNGS: Bilateral air entry present. ABDOMEN: Soft. There is mild tenderness on the epigastric, the right upper quadrant area, there is no rebound or guarding. EXTREMITIES: No edema. No cyanosis. NEUROLOGIC: Alert, oriented, moves all the extremities. LABORATORY DATA: Hemoglobin 11.4, hematocrit 35.3, WBC 3.5, platelets 220. Chemistry is essentially unremarkable. 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 I did review the CAT scan, shows a lesion in the left lobe of the liver, this could be pressing on the stomach area. Patient did undergo radiofrequency ablation. I do not know the details. Patient is being followed by . Patient has been having some loose bowel movements because of these MiraLax, lactulose. Patient did receive a yesterday. Would discontinue the present another dose of lactulose or MiraLax. We will continue to closely follow up her care and suggest further management based on the clinical course. Thank you very much for allowing us to participate in the care of the patient. Rebecca Ramsey MD
[2017-10-12 08:29] VITALS: BP 94/52; PULSE 71; TEMP 98.5
[2017-10-12] MEDS: POLYETHYLENE GLYCOL 3350 17 GM/Dose PACKET PO SCH (09:35)
[2017-10-12] MEDS: Sodium Chloride 0.9% 1,000 ML IV SCH (09:37)
--- NOTE | 2017-10-12 14:04 | CP.PCM.PN ---
Subjective - Date & Time of Evaluation Date of Evaluation: 10/12/17 Time of Evaluation: 10:20 - Subjective Subjective: S&E at bedside, chart reviewed, no acute overnight events reported. Had multiple BM after doses of Miralax per patient, no GI bleeding noted, nausea and abdominal pain are resolved, tolerating oral intake but "taking it easy" per patient. Objective - Vital Signs/Intake and Output Vital Signs (last 24 hours): Temp Pulse Resp BP Pulse Ox 98.5 F 71 18 94/52 L 99 10/12/17 08:28 10/12/17 08:28 10/12/17 08:28 10/12/17 08:28 10/12/17 08:28 Intake and Output: 10/12/17 10/12/17 06:59 18:59 Intake Total 1515 Balance 1515 - Medications Medications: Current Medications Hydromorphone HCl (Dilaudid) 0.5 mg IVP Q4H PRN PRN Reason: Pain, Mild (1-3) Last Admin: 10/11/17 21:15 Dose: 0.5 mg Sodium Chloride (Sodium Chloride 0.9%) 1,000 mls @ 80 mls/hr IV .[id number] [facility] Last Admin: 10/12/17 09:37 Dose: 80 mls/hr Lactulose (Enulose) 30 gm PO DAILY [facility] Last Admin: 10/12/17 09:34 Dose: Not Given Ondansetron HCl (Zofran Inj) 4 mg IVP Q6 PRN PRN Reason: Nausea/Vomiting Last Admin: 10/11/17 16:36 Dose: 4 mg Pantoprazole Sodium (Protonix Inj) 40 mg IVP DAILY [facility] Last Admin: 10/12/17 09:35 Dose: 40 mg Polyethylene Glycol (Miralax) 17 gm PO TID [facility] Last Admin: 10/12/17 09:35 Dose: Not Given - Labs Labs: 10/11/17 05:15 10/11/17 05:15 - Constitutional Appears: No Acute Distress - Head Exam Head Exam: NORMOCEPHALIC - Eye Exam Eye Exam: Normal appearance, PERRL - ENT Exam ENT Exam: Mucous Membranes Moist - Neck Exam Neck Exam: Normal Inspection - Respiratory Exam Respiratory Exam: Clear to Ausculation Bilateral, NORMAL BREATHING PATTERN. absent: Respiratory Distress - Cardiovascular Exam Cardiovascular Exam: +S1, +S2 - GI/Abdominal Exam GI & Abdominal Exam: Soft, Normal Bowel Sounds. absent: Guarding, Tenderness, Rebound - Extremities Exam Extremities Exam: absent: Calf Tenderness, Pedal Edema - Neurological Exam Neurological Exam: Alert, Awake, Oriented x3 - Skin Skin Exam: Dry, Warm Assessment and Plan - Assessment and Plan (Free Text) Assessment: ASSESSMENT: Severe constipation, resolved Abdominal Pain, resolved Hepatic adenoma, s/p segmental resection, s/p radiofrequency ablation; had ct scan report lesion on left lobe of liver, this may be pressisng on stomach PLAN: continue bowel regimine soft low fiber initially then can increase slowly PPI plan for DC home today, discuss w/patient take Colace BID and Miralax daily or as PRN, monitor stools but need bowel regmine FU outpatient office Seen and discussed w/ Dr. Ramsey.
== END 2017-10-12 14:42 | disposition home or self-care (01) | DRG 392 ==
LOC: ED 08:38 → ERH 16:32 → 3RNO 18:57
PROVIDERS: ADMIT Internal Medicine; ATTEND Internal Medicine
DX: K59.09 Other constipation (principal); Q45.3 Other congenital malformations of pancreas and pancreatic duct; N83.202 Unspecified ovarian cyst, left side; N83.201 Unspecified ovarian cyst, right side; D64.9 Anemia, unspecified; K29.50 Unspecified chronic gastritis without bleeding; Z85.05 Personal history of malignant neoplasm of liver

== ENCOUNTER 2018-06-01 07:39 | Emergency (ER) | payer BC, MEDICAID ==
[2018-06-01 08:00] VITALS: RESP 17; TEMP 98.4; BMI 21.6
[2018-06-01] MEDS ORDERED: Aluminum Hydroxide/Magnesium 30 ML, DiphenhydrAMINE 75 MG, Lidocaine 2% Viscous 30 ML PO STA (08:00)
--- NOTE | 2018-06-01 08:01 | ED PDOC ---
Arrival/HPI - General Time Seen by Provider: 06/01/18 07:51 Historian: Patient - History of Present Illness Narrative History of Present Illness (Text): 06/01/18 07:59 27 year old female, whose past medical history includes Hepatic tumor s/p Hepatic lobectomy, hepatic ablation, and pancreatic divisum, presents to the emergency department complaining worsening throat pain for the past week. Patient reports it began on the left side and then began radiating over to the right side of the throat. Patient did not take any medication for the pain. Patient denies any fever, chills, cough, chest pain, shortness of breath, nausea , vomiting, diarrhea, urinary symptoms, back pain, neck pain, headache, dizziness, or any other complaints. PMD: Dr. Yun Past Medical History - Provider Review Nursing Documentation Reviewed: Yes - Infectious Disease Hx of Infectious Diseases: None - Tetanus Immunization Tetanus Immunization: Unknown - Reproductive Menopause: No - Past Medical History Past Medical History: No Previous - Cardiac Hx Cardiac Disorders: No - Pulmonary Hx Respiratory Disorders: Yes Hx Bronchitis: Yes - Neurological Hx Neurological Disorder: No - HEENT Hx HEENT Disorder: No - Renal Hx Renal Disorder: No - Endocrine/Metabolic Hx Endocrine Disorders: No - Hematological/Oncological Hx Blood Disorders: No - Integumentary Hx Dermatological Disorder: No - Musculoskeletal/Rheumatological Hx Musculoskeletal Disorders: No Hx Falls: No - Gastrointestinal Hx Gastrointestinal Disorders: Yes (gastroenteritis) Other/Comment: Pancreatic problems- as Per patient pancrease is splitting in half. Liver tumors.pt started experiencing abd pain back in 2008 on and off, was dx with liver tumors 2011, liver tumor removed 04/12/17 bwas benign,hepatic lobectomy partial, hepatic ablation 06/2017 and 08/2017, [place] [facility] [place] slight bleeding secondary to ablation done in august. at this point in time liver tumors cause unknown, after hepatic lobectomy partial liver rejuvinated but the tumor grew back also. - Genitourinary/Gynecological Other/Comment: 03/2012, d&c 2011 and 2015 - Psychiatric Hx Psychophysiologic Disorder: No Hx Substance Use: No - Past Surgical History Past Surgical History: No Previous - Surgical History Other/Comment: Liver Tumor removal. - Anesthesia Hx Anesthesia: Yes Hx Anesthesia Reactions: No Hx Malignant Hyperthermia: No - Suicidal Assessment Feels Threatened In Home Enviroment: No Family/Social History - Physician Review Nursing Documentation Reviewed: Yes Family/Social History: No Known Family HX Smoking Status: Never Smoked Hx Alcohol Use: No Hx Substance Use: No Hx Substance Use Treatment: No Allergies/Home Meds Allergies/Adverse Reactions: Allergies No Known Allergies Allergy (Verified 10/09/17 09:06) Review of Systems - Physician Review All systems were reviewed & negative as marked: Yes - Review of Systems Constitutional: absent: Fevers Respiratory: absent: Cough Physical Exam - Physical Exam Narrative Physical Exam (Text): 06/01/18 07:58 Constitutional: No acute distress. Head: Normocephalic. Atraumatic. Eyes: PERRL. ENT: Uvula midline. Moist mucous membranes. No tonsillar erythema or exudate. No visible swelling interiorly or exteriorly. Neck: Tender lymphadenopathy bilaterally. Cardiovascular: Regular rate. Chest: No tenderness. Respiratory: Clear to auscultation bilaterally. GI: Soft. Nontender. Nondistended. Back: No CVA tenderness. Musculoskeletal: No tenderness or swelling of extremities. Skin: No rash. Neurologic: Alert, no focal deficit. Vital Signs Reviewed: Yes Vital Signs Temp Pulse Resp BP Pulse Ox 06/01/18 07:49 98.4 F 79 17 104/88 97 Medical Decision Making ED Course and Treatment: 06/01/18 07:59 Impression: 27 year old female presents complaining of worsening throat pain for the past week. Plan: -- Maalox Plus 30ml, Benadryl, Lidocaine 2% Viscous, Toradol -- Rapid Strep Group A Antigen -- Reassess and disposition Prior Visits: Notes and results from previous visits were reviewed. Progress Notes: Rapid strep negative. Culture will be automatically sent. Will advise continued magic mouthwash and NSAIDs, f/u PMD/ENT, return to ED for worsening pain, inability to swallow, vomiting, fever, or any other problem. - Lab Interpretations Lab Results: Lab Results 06/01/18 08:30: Grp A Beta Strep Ag Negative I have reviewed the lab results: Yes - Medication Orders Current Medication Orders: Discontinued Medications Al Hydrox/Mg Hydrox/Simethicone 30 ml/Diphenhydramine HCl 75 mg/Lidocaine 30 ml 0 ml PO STAT STA Stop: 06/01/18 08:01 Last Admin: 06/01/18 08:36 Dose: 15 ml Ketorolac Tromethamine (Toradol) 60 mg IM STAT STA Stop: 06/01/18 08:01 Last Admin: 06/01/18 08:31 Dose: 60 mg MAR Pain Assessment Document 06/01/18 08:31 SF (Rec: 06/01/18 08:31 [id number]) Pain Reassessment Is this a pain reassessment? Yes Sleep Is patient sleeping during reassessment? No Presence of Pain Presence of Pain Yes Location Pain Location Body Site Throat Description Description Constant IM Administration Charges Document 06/01/18 08:31 SF (Rec: 06/01/18 08:31 SF [id number]) Injection Site MAR Injection Site Left Deltoid Charges for Administration # of IM Administrations 1 - Scribe Statement The provider has reviewed the documentation as recorded by the Vivien Melendrez Provider Scribe Attestation: All medical record entries made by the Scribe were at my direction and personally dictated by me. I have reviewed the chart and agree that the record accurately reflects my personal performance of the history, physical exam, medical decision making, and the department course for this patient. I have also personally directed, reviewed, and agree with the discharge instructions and disposition. Disposition/Present on Arrival - Present on Arrival Any Indicators Present on Arrival: No History of DVT/PE: No History of Uncontrolled Diabetes: No Urinary Catheter: No History of Decub. Ulcer: No History Surgical Site Infection Following: None - Disposition Have Diagnosis and Disposition been Completed?: Yes Diagnosis: Sore throat Disposition: HOME/ ROUTINE Disposition Time: 09:00 Patient Plan: Discharge Condition: STABLE Discharge Instructions (ExitCare): Sore Throat in Adults Prescriptions: Acetaminophen [Tylenol 325mg tab] 2 tab PO Q4H #30 tab DiphenhydrAMINE [Benadryl] 2 cap PO Q8 #25 cap Ibuprofen [Motrin] 1 tab PO Q6 #30 tab Referrals: Nikky Yun MD [Primary Care Provider] - Follow up with primary Sachin Chand DO [Staff Provider] - Follow up with primary
[2018-06-01 09:24] VITALS: BP 110/85; PULSE 75; O2SAT 100
== END 2018-06-01 09:25 | disposition home or self-care (01) ==
LOC: ED 07:39
DX: J02.9 Acute pharyngitis, unspecified (principal)
CPT/HCPCS: 87070; 87430; 96372; 99284; J1885

== ENCOUNTER 2019-02-20 11:20 | Day surgery (SDC) | payer BC ==
[2019-02-15 17:15] VITALS: BMI 22.4
[2019-02-20] MEDS ORDERED: Propofol 10 mg/ml Inj (20 ML) ONE (13:03)
[2019-02-20] MEDS ORDERED: Simethicone 40 mg/0.6 ml Liquid (30 ml) ONE (13:10)
[2019-02-20] MEDS ORDERED: Sodium Chloride 0.9% 1,000 ML IV SCH (13:30)
[2019-02-20 16:30] VITALS: BP 112/65; PULSE 64; RESP 16; TEMP 09.1; O2SAT 100
== END 2019-02-20 15:05 | disposition home or self-care (01) ==
LOC: ENDO 11:20
PROVIDERS: ATTEND Internal Medicine Gastroenterology
DX: R10.13 Epigastric pain (principal); K29.50 Unspecified chronic gastritis without bleeding; K44.9 Diaphragmatic hernia without obstruction or gangrene
CPT/HCPCS: 43239; 84703; 88305; 88342; J2001; J2704; J7030; J7040